=== PATIENT | female | born 1955 | race American Indian/Alaskan Native ===

== ENCOUNTER 2016-08-13 13:40 | Emergency (ER) | payer SELFPAY ==
[2016-08-13 16:37] VITALS: BP 129/82
== END 2016-08-13 13:41 | disposition left against medical advice (07) ==
LOC: ED 13:40
DX: N89.8 Other specified noninflammatory disorders of vagina (principal); M19.90 Unspecified osteoarthritis, unspecified site; Z53.21 Procedure and treatment not carried out due to patient leaving prior to being seen by health care provider